=== PATIENT | female | born 1990 | race American Indian/Alaskan Native ===

== ENCOUNTER 2021-02-21 01:09 | Emergency (ER) | payer SELFPAY ==
[2021-02-21] MEDS ORDERED: ONDANSETRON 4 MG ODT TAB ONE (02:00)
[2021-02-21] MEDS ORDERED: ONDANSETRON 4 MG ODT TAB PO ONE (02:07)
[2021-02-21 02:48] LABS: Basophils % (Auto) 0.3 % (0.0-1.8); Hematocrit 43.4 % (30.3-42.9); Hemoglobin 14.8 gm/dl (10.1-14.3); Lymphocytes # (Auto) 1.9 K/mm3 (1.2-5.4); Lymphocytes % (Auto) 25.8 % (13.4-35.0); Mean Corpuscular HGB Conc 34 % (30-34); Mean Corpuscular Volume 90 fl (79-97); Monocytes # (Auto) 0.6 K/mm3 (0.0-0.8); Monocytes % (Auto) 7.8 % (0.0-7.3); Platelet Count 330 K/mm3 (140-440); Red Cell Distribution Width 13.6 % (13.2-15.2)
[2021-02-21 03:06] LABS: Alanine Aminotransferase 9 units/L (7-56); BUN/Creatinine Ratio 15; Blood Urea Nitrogen 12 mg/dL (7-17); Calcium 9.7 mg/dL (8.4-10.2); Hemolysis Index 5
[2021-02-21] MEDS ORDERED: FAMOTIDINE 20 MG/2 ML INJ IV ONE (03:48)
[2021-02-21] MEDS ORDERED: ONDANSETRON 4 MG/2 ML INJ IV ONE (03:48)
[2021-02-21] MEDS ORDERED: SODIUM CHLORIDE 0.9% 1000 ML 1,000 ML IV ONE (03:48)
[2021-02-21] MEDS ORDERED: DICYCLOMINE 20 MG/2 ML INJ IM ONE (03:48)
--- NOTE | 2021-02-21 05:32 | Emergency Department Report ---
<BISHOP JONES - Last Filed: 02/21/21 06:34> ED N/V/D HPI - General Chief complaint: Nausea/Vomiting/Diarrhea Stated complaint: VOMITING/BLOOD Source: patient Mode of arrival: Ambulatory Limitations: No Limitations - History of Present Illness Initial comments: Patient is a nulliparous 30-year-old -[place] female with no past medical history presents to the ED with complaint of acute onset persistent intractable nausea and vomiting and mild diffuse abdominal discomfort after eating at a [employer] restaurant 2 days ago. Patient states that she has not been able to keep anything down despite sleeping reba marjorie drinks. Patient states that her boyfriend also ate the same food had similar symptoms but his symptoms have since resolved. Patient states that in the last 12 hours she has had multiple nausea and vomiting episodes and now feels lightheaded, generalized weakness and headache. Patient denies diarrhea, fever, chills, chest pain, shortness of breath, sore throat, dysuria, urinary frequency and urgency, hematemesis, hematochezia, vaginal bleeding, vaginal discharge or low back pain. MD complaint: nausea, vomiting -: Sudden, days(s) (2) Description of Vomiting: food contents, watery, bilious Associated Abdominal Pain: Yes (Mildly diffuse) Location: diffuse Radiation: none Severity: severe Pain Scale: 7 Quality: dull Consistency: intermittent Improves with: none Worsens with: eating, vomiting Context: possible food poisoning Associated Symptoms: denies other symptoms, loss of appetite, malaise, nausea/vomiting. denies: myalgias, chest pain, cough, diaphoresis, f ever/chills, headaches, rash, dysuria, shortness of breath, syncope, weakness - Related Data Previous Rx's Medication Instructions Recorded Last Taken Type Famotidine [Pepcid] 20 mg PO BID 10 Days #20 tablet 02/21/21 Unknown Rx Hyoscyamine Subl [Levsin Sl 0.125 0.125 mg SL Q6HR #8 tab 02/21/21 Unknown Rx TAB] Nitrofurantoin [place]/M-Cryst 100 mg PO Q12HR 10 Days #20 capsule 02/21/21 Unknown Rx [Macrobid CAP] Allergies Allergy/AdvReac Type Severity Reaction Status Date / Time No Known Allergies Allergy Unverified 02/21/21 02:03 ED Review of Systems Constitutional: denies: chills, fever Eyes: denies: eye pain, eye discharge, vision change ENT: denies: ear pain, throat pain Respiratory: denies: cough, shortness of breath, wheezing Cardiovascular: denies: chest pain, palpitations Endocrine: no symptoms reported Gastrointestinal: nausea, vomiting. denies: abdominal pain, diarrhea Genitourinary: denies: urgency, dysuria, discharge Musculoskeletal: denies: back pain, joint swelling, arthralgia Skin: denies: rash, lesions Neurological: denies: headache, weakness, paresthesias Psychiatric: denies: anxiety, depression Hematological/Lymphatic: denies: easy bleeding, easy bruising ED Past Medical Hx - Past Medical History Previous Medical History?: No - Social History Smoking Status: Never Smoker - Medications Home Medications: Home Medications Medication Instructions Recorded Confirmed Last Taken Type Famotidine [Pepcid] 20 mg PO BID 10 Days #20 tablet 02/21/21 Unknown Rx Hyoscyamine Subl [Levsin Sl 0.125 0.125 mg SL Q6HR #8 tab 02/21/21 Unknown Rx TAB] Nitrofurantoin [place]/M-Cryst 100 mg PO Q12HR 10 Days #20 capsule 02/21/21 Unknown Rx [Macrobid CAP] ED Physical Exam - General Limitations: No Limitations General appearance: alert, in no apparent distress - Head Head exam: Present: atraumatic, normocephalic, normal inspection - Eye Eye exam: Present: normal appearance, PERRL, EOMI Pupils: Present: normal accommodation - ENT ENT exam: Present: normal exam, normal orophraynx, mucous membranes moist, TM's normal bilaterally, normal external ear exam - Neck Neck exam: Present: normal inspection, full ROM - Respiratory Respiratory exam: Present: normal lung sounds bilaterally. Absent: respiratory distress, wheezes, rales, stridor, chest wall tenderness, decreased breath sounds, prolonged expiratory - Cardiovascular Cardiovascular Exam: Present: regular rate, normal rhythm, normal heart sounds. Absent: systolic murmur, diastolic murmur, rubs, gallop - GI/Abdominal GI/Abdominal exam: Present: soft, normal bowel sounds, hyperactive bowel sounds. Absent: tenderness, guarding, rebound, hypoactive bowel sounds, organomegaly - Extremities Exam Extremities exam: Present: normal inspection, full ROM, normal capillary refill - Back Exam Back exam: Present: normal inspection, full ROM. Absent: tenderness, CVA tenderness (R), CVA tenderness (L), muscle spasm - Neurological Exam Neurological exam: Present: alert, oriented X3, CN II-XII intact, normal gait, reflexes normal - Psychiatric Psychiatric exam: Present: normal affect, normal mood - Skin Skin exam: Present: warm, dry, intact, normal color. Absent: rash ED Medical Decision Making - Lab Data Result diagrams: 02/21/21 02:22 02/21/21 02:22 - Medical Decision Making This is a nulliparous 30-year-old -[place] female with no past medical history presents to the ED with complaint of acute onset persistent intractable nausea and vomiting and mild diffuse abdominal discomfort after eating at a [employer] restaurant 2 days ago. Patient states that she has not been able to keep anything down despite sleeping reba marjorie drinks. Patient states that her boyfriend also ate the same food had similar symptoms but his symptoms have since resolved. Patient states that in the last 12 hours she has had multiple nausea and vomiting episodes and now feels lightheaded, generalized weakness and headache. Lab test results are unremarkable, UA test results are pending. On reevaluation, patient's nausea and vomiting resolved with medications. Patient care transferred to Ms Alejandra Martins at shift change at 0700 hours. - Differential Diagnosis Gastroenteritis; dehydration; GERD; gastritis; UTI ED Disposition Clinical Impression: UTI (urinary tract infection), Nausea and vomiting in adult patient, Viral gastroenteritis Disposition: DC-01 TO HOME OR SELFCARE Is pt being admited?: No Does the pt Need Aspirin: No Condition: Stable Instructions: Viral Gastroenteritis, Adult, [id number], Nausea and Vomiting, Adult, [id number] Additional Instructions: Take medication as prescribed. Follow-up with your primary care provider. Increase your fluid intake advance her diet as tolerated. Tylenol or ibuprofen as needed for pain management. Prescriptions: Hyoscyamine Subl [Levsin Sl 0.125 TAB] 0.125 mg SL Q6HR #8 tab Nitrofurantoin [place]/M-Cryst [Macrobid CAP] 100 mg PO Q12HR 10 Days #20 capsule Famotidine [Pepcid] 20 mg PO BID 10 Days #20 tablet Referrals: PRIMARY CAREMD [Primary Care Provider] - 3-5 Days [facility] [Provider Group] - 3-5 Days [facility] [Provider Group] - 3-5 Days [facility] [Provider Group] - 3-5 Days Time of Disposition: 06:46 Print Language: SLOVENIAN <MARY MARTINS - Last Filed: 02/21/21 10:38> ED Review of Systems ROS: Stated complaint: VOMITING/BLOOD Other details as noted in HPI ED Course Vital Signs 02/21/21 02/21/21 02:04 05:49 Temperature 98.3 F 98.4 F Pulse Rate 70 60 Respiratory 18 18 Rate Blood Pressure 105/83 Blood Pressure 117/76 [Left] O2 Sat by Pulse 99 100 Oximetry - Reevaluation(s) Reevaluation #1: 02/21/21 10:00 Patient reports that she feels about the same. Still having some acid regurg. No fever. Asking for ice water. Patient passed her p.o. challenge no vomiting. ED Medical Decision Making - Lab Data Result diagrams: 02/21/21 02:22 02/21/21 02:22 - Medical Decision Making Ordered a lipase which was within normal limits of 44. Patient is being discharged on medications for urinary tract infection and gastritis. Discussed with patient increase her fluid intake advance her diet as tolerated. Patient referred to primary care provider as well as a gastr oenterologist. The patient is resting comfortably and feels better, is alert and in no distress. The repeat examination is unremarkable and benign; in particular, there is no discomfort at the McBurney's point and there is no pulsating mass. The history, exam and diagnostic testing, and current condition do not suggest an acute appendicitis, bowel obstruction, or acute cholecystitis, bowel perf oration, major gastrointestinal bleeding, severe diverticulitis, abdominal aorta, mesenteric ischemia, volvulus, sepsis, or other significant pathology to warrant further testing, continued ED treatment, admission, or surgical evaluation at this point. The vital signs have been stable. The patient does not have uncomfortable pain, irretractable vomiting, or other significant symptoms. The patient's condition is stable and appropriate for discharge from the emergency room. The patient will pursue further outpatient evaluation with the primary care physician or other designated or consulting physician as indicated in the discharge instructions. Critical care attestation.: If time is entered above; I have spent that time in minutes in the direct care of this critically ill patient, excluding procedure time. ED Disposition Time of Disposition: 10:28
[2021-02-21 05:52] VITALS: BP 117/76
[2021-02-21 06:51] LABS: Bacteria,Urine 1+ /HPF (Negative); Bilirubin,Urine NEG (Negative); Blood,Urine MOD (Negative); Color,Urine Yellow (Yellow); Mucus,Urine 3+ /HPF; Urobilinogen,Urine < 2.0 mg/dL (<2.0)
[2021-02-21] MEDS ORDERED: PANTOPRAZOLE 40 MG INJ IV ONE (06:51)
== END 2021-02-21 12:22 | disposition home or self-care (01) ==
LOC: ED 01:09
DX: N39.0 Urinary tract infection, site not specified (principal); A08.4 Viral intestinal infection, unspecified; Z79.899 Other long term (current) drug therapy
CPT/HCPCS: 36415; 80053; 81001; 83690; 84703; 85025; 87086; 96361; 96372; 96374; 96375; 99283; J0500; J2405; J7030; Q0162